=== PATIENT | male | born 1990 | race Caucasian/White ===

== ENCOUNTER → 2021-08-04 | Outpatient (CLI) | payer OTHER ==
--- NOTE | 2021-08-05 18:02 | REP ---
INDICATION: RT KNEE PAIN. COMPARISON: None. TECHNIQUE: AP, lateral, sunrise views of the right knee FINDINGS: Osseous structures, joint spaces, and surrounding soft tissues are normal/age-appropriate. No overt degenerative changes. No acute or healed injury. No effusion. IMPRESSION: Essentially age-appropriate right knee radiographs <Electronically signed by Sae Slaughter > 08/05/21 [id number]
== END ==
LOC: M SOG 13:22
PROVIDERS: ATTEND Orthopaedic Surgery
DX: M25.561 Pain in right knee (principal)